=== PATIENT | female | born 1960 | race Caucasian/White ===

== ENCOUNTER 2017-01-04 16:30 | Outpatient (RCR) | payer BC ==
[~2017-01-04 16:30] MED LIST: AMBIEN 10MG10 MG PO; IC-5 PO; NORCO 325 MG-51 TAB PO
== END 2017-01-05 09:55 ==
LOC: MKS.ESL.PT 16:30
DX: M54.41 Lumbago with sciatica, right side (principal)

== ENCOUNTER 2017-05-22 16:15 | Outpatient (RCR) | payer BC | END 2017-07-04 11:29 | disposition home or self-care (01) | LOC: MKS.ESL.PT 16:15 | DX: M54.2 Cervicalgia (principal); M25.519 Pain in unspecified shoulder; M25.559 Pain in unspecified hip ==

== ENCOUNTER → 2017-06-28 | Outpatient (CLI) | payer BC | LOC: COL.RAD 09:44 | DX: M48.061 Spinal stenosis, lumbar region without neurogenic claudication (principal); M51.26 Other intervertebral disc displacement, lumbar region; M51.37 Other intervertebral disc degeneration, lumbosacral region; M51.36 Other intervertebral disc degeneration, lumbar region | CPT/HCPCS: A9585 ==

== ENCOUNTER → 2017-07-17 | Outpatient (CLI) | payer BC | LOC: MHCPAIN 14:57 | DX: G89.29 Other chronic pain (principal); M47.27 Other spondylosis with radiculopathy, lumbosacral region; M53.3 Sacrococcygeal disorders, not elsewhere classified; M96.1 Postlaminectomy syndrome, not elsewhere classified; Z87.891 Personal history of nicotine dependence | CPT/HCPCS: G0463 ==

== ENCOUNTER → 2017-08-24 | Outpatient (CLI) | payer BC | LOC: MHCPAIN 12:38 | DX: M47.817 Spondylosis without myelopathy or radiculopathy, lumbosacral region (principal); M96.1 Postlaminectomy syndrome, not elsewhere classified; M48.061 Spinal stenosis, lumbar region without neurogenic claudication | CPT/HCPCS: J1100; J2250; J3010; Q9967 ==

== ENCOUNTER → 2017-09-05 | Outpatient (CLI) | payer BC | LOC: MHCPAIN 12:02 | DX: G89.29 Other chronic pain (principal); M47.27 Other spondylosis with radiculopathy, lumbosacral region; M53.3 Sacrococcygeal disorders, not elsewhere classified; M96.1 Postlaminectomy syndrome, not elsewhere classified; F17.210 Nicotine dependence, cigarettes, uncomplicated | CPT/HCPCS: G0463 ==

== ENCOUNTER → 2018-06-16 | Outpatient (CLI) | payer BC ==
[2018-06-16 10:36] LABS: CHOLESTEROL RISK RATIO 3.3
== END ==
LOC: COL.LAB 10:02
PROVIDERS: Internal Medicine
DX: E11.69 Type 2 diabetes mellitus with other specified complication (principal); E78.00 Pure hypercholesterolemia, unspecified